=== PATIENT | male | born 1960 | race Caucasian/White ===

== ENCOUNTER 2017-10-19 08:54 | Day surgery (SDC) | payer OTHER ==
--- NOTE | 2017-10-18 19:59 | PDGENHP ---
History & Physical Chief Complaint: right shoulder pain History of Present Illness: 57 yo male, presenting today for right shoulder surgery by dr. fields for right shoulder sub acromial decompression, distal clavicle excision, labral debridement for a diagnosis of right shoulder impingement and AC arthrosis and labral tear. Pertinent Past, Social, Family History: FH: CHD, father,. PSH: hernia, vasectomy. Allergies: NKDA. Meds: denies Relevant Physical Exam: RUE: ttp over right ACJ, pain with end range foreward flexion and abduction, full elbow/wrist/digit, nvid w/ brisk cap refill Cardiorespiratory Assessment: ctab, no wheezes/rhales. rrr, no murmurs/rubs/ gallops
[2017-10-19] MEDS ORDERED: LR 1,000 ML IV SCH (09:14)
[2017-10-19] MEDS ORDERED: ceFAZolin 2 GM/SWFI 2 GM/20 ML SYR IVP ONE (09:14)
[2017-10-19] MEDS ORDERED: LR 1,000 ML IV ONE (09:15)
[2017-10-19] MEDS ORDERED: LIDOCAINE 1% 2 ML INJ ID PRN (09:15)
--- NOTE | 2017-10-19 09:39 | PDANEPAE ---
ANE History of Present Illness 57 year old male for right shoulder artroscopy. ANE Past Medical History - Cardiovascular History Hx Hypertension: No Hx Arrhythmias: No Hx Chest Pain: No Hx Coronary Artery / Peripheral Vascular Disease: No Hx CHF / Valvular Disease: No Hx Palpitations: No - Pulmonary History Hx COPD: No Hx Asthma/Reactive Airway Disease: No Hx Recent Upper Respiratory Infection: No Hx Oxygen in Use at Home: No Hx Sleep Apnea: No Sleep Apnea Screening Result - Last Documented: Negative - Neurologic History Hx Cerebrovascular Accident: No Hx Seizures: No Hx Dementia: No - Endocrine History Hx Diabetes: No - Renal History Hx Renal Disorders: No - Liver History Hx Hepatic Disorders: No - Neurological & Psychiatric Hx Hx Neurological and Psychiatric Disorders: No - Cancer History Hx Cancer: No - Congenital Disorder History Hx Congenital Disorders: No - GI History Hx Gastrointestinal Disorders: No - Other Health History Other Health History: wears glasses - Chronic Pain History Chronic Pain: Yes (right shoulder) - Surgical History Prior Surgeries: hernia repair 2015. VASECTOMY. VASECTOMY REVERSAL ANE Review of Systems Review of systems is: negative Review of Systems: - Exercise capacity Exercise capacity: >=4 METS METS (RN): 4 METS ANE Patient History - Allergies Allergies/Adverse Reactions: No Known Allergies Allergy (Verified 10/12/17 15:45) - Home Medications Home medications: home medication list seen and reviewed Home Medications: NK [No Known Home Meds] 10/12/17 [Last Taken Unknown] - NPO status NPO Status: no food or drink >8 hours NPO Since - Liquids (Date): 10/18/17 NPO Since - Liquids (Time): 23:25 NPO Since - Solids (Date): 10/18/17 NPO Since - Solids (Time): 22:00 - Anes Hx Anes Hx: no prior problems - Smoking Hx Smoking Status: Never smoked - Alcohol Use Alcohol Use: Rarely - Family Anes Hx Family Anes Hx: neg - N/A Family Hx Anesthesia Complications: NONE ANE Labs/Vital Signs - Vital Signs Vital Signs: reviewed preoperatively; see RN documention for details Blood Pressure: 143/85 Heart Rate: 66 Respiratory Rate: 16 O2 Sat (%): 96 Height: 177.8 cm Weight: 74.843 kg ANE Physical Exam - Airway Neck exam: FROM Mallampati Score: Class 2 Mouth exam: normal dental/mouth exam - Pulmonary Pulmonary: no respiratory distress - Cardiovascular Cardiovascular: regular rate and rhythym - ASA Status ASA Status: I ANE Anesthesia Plan Anesthesia Plan: GA w LMA Total IV Anesthesia: No
[2017-10-19] MEDS ORDERED: MIDAZOLAM 2 MG/2 ML VIAL IVP ONE (10:23)
[2017-10-19] MEDS ORDERED: PROPOFOL 200 MG/20 ML VIAL ONE (10:31)
[2017-10-19] MEDS ORDERED: LIDOCAINE 2% 5 ML SDV ONE (10:32)
[2017-10-19] MEDS ORDERED: fentaNYL 100 MCG/2 ML INJ ONE ×3 (10:32→12:53)
[2017-10-19] MEDS ORDERED: LIDO/EPI 1% **for epidural** 10 ML SDV ONE (10:35)
[2017-10-19] MEDS ORDERED: BUPIVACAINE/EPI 0.5% 30 ML SDV ONE (10:35)
[2017-10-19] MEDS ORDERED: PHENYLEPHRINE HCL 100 MCG/ML SYR ONE (11:12)
[2017-10-19] MEDS ORDERED: ONDANSETRON 4 MG/2 ML VIAL ONE (11:13)
[2017-10-19] MEDS ORDERED: DEXAMETHASONE 4 MG/ML VIAL ONE (11:13)
[2017-10-19] MEDS ORDERED: LR 500 ML IV PRN (11:46)
[2017-10-19] MEDS ORDERED: PHENYLEPHRINE HCL 100 MCG/ML SYR IVP PRN (11:46)
[2017-10-19] MEDS ORDERED: ONDANSETRON 4 MG/2 ML VIAL IVP PRN ×2 (11:46→12:36)
[2017-10-19] MEDS ORDERED: OXYCODONE/APAP 5/325 TAB PO PRN (11:46)
[2017-10-19] MEDS ORDERED: NALOXONE HCL 0.4 MG/ML INJ IVP PRN (11:46)
--- NOTE | 2017-10-19 12:35 | POSTOPPROG ---
Post Op Note Date of Operation: 10/19/17 Surgeon: Lupe Watkins Shafting Cleaner: Zach. Nestor BOSTON Anesthesiologist: Dr. ward hernandez Anesthesia: LMA Pre-op Diagnosis: right shoulder pain, right shoulder impingement Post-op Diagnosis: right shoulder pain, right shoulder impingement Indication: right shoulder pain, right shoulder impingement Procedure: Rt shoulder scope, SAD, DCE, labral debridement, biceps tenotomy Inf/Abcess present in the surg proc area at time of surgery?: No Depth: Deep Incisional (Fascial) EBL: Minimal Complications: none
[2017-10-19] MEDS ORDERED: HYDROCODONE/APAP 5/325 TAB PO PRN (12:36)
[2017-10-19] MEDS ORDERED: ACETAMINOPHEN 325 MG TAB PO PRN (12:36)
[2017-10-19] MEDS ORDERED: PROMETHAZINE HCL 25 MG/ML INJ IVP PRN (12:36)
[2017-10-19] MEDS: fentaNYL 100 MCG/2 ML INJ IVP PRN ×2 (12:56→13:14)
[2017-10-19] MEDS ORDERED: HYDROmorphONE/DILAUDID 1 MG/ML INJ ONE (12:59)
[2017-10-19] MEDS ORDERED: HYDROCODONE/APAP 5/325 TAB ONE (13:00)
[2017-10-19] MEDS: HYDROmorphONE/DILAUDID 1 MG/ML INJ IVP PRN ×2 (13:01→13:14)
--- NOTE | 2017-10-19 13:11 | GOP ---
[f rep st] OPERATIVE REPORT DATE OF OPERATION: 10/19/2017 SURGEON: Lupe Watkins MD [facility] DIRECTOR: Garrison Baez PA-C. ANESTHESIA: General. PREOPERATIVE DIAGNOSIS: Right shoulder impingement syndrome with associated partial thickness rotato r cuff tear, labral tear, and acromioclavicular arthritis. Rule out biceps tendonitis. POSTOPERATIVE DIAGNOSIS: 1. Degenerative tear involving the superior and posterior labrum. 2. Significant fraying of the long head of the biceps involving the intra-articular portion. 3. Impingement syndrome with partial thickness tearing of the supraspinatus at its insertion on the greater tuberosity. 4. Acromioclavicular arthritis. PROCEDURE PERFORMED: 1. Arthroscopic debridement of frayed portion of posterior and superior labrum. 2. Biceps tenotomy. 3. Arthroscopic subacromial decompression. 4. Distal clavicular resection. FINDINGS: ESTIMATED BLOOD LOSS: 5 cc. INDICATIONS: This patient is a 57-year-old male who has had shoulder pain which has been unresponsiv e to conservative management. He has been evaluated with an MRI scan which shows evidence of the abo ve-noted preoperative diagnoses. He is admitted for operative treatment. DESCRIPTION OF PROCEDURE: After the induction of a general anesthesia, the patient was placed on the operating room table in a modified beach-chair position. His right shoulder axilla and arm were pre pped and draped in the usual fashion. Standard arthroscopic portals were utilized. The scope was in troduced in the posterior portal, and the glenohumeral joint inspected. The intra-articular exam ana maria wed evidence of some fraying involving the long head of the biceps. It involved the intra-articular portion. The damage was beyond the scope of what was likely to heal. A biceps tenotomy was performe d. There was fraying of the inner margin of the superior labrum and unstable flap components to a de generative tear of the superior posterior labrum. These were debrided with a rotary debrider. The g lenoid and humeral articular surfaces were in excellent condition. There was a partial thickness tea r of the supraspinatus at its insertion on the greater tuberosity. It involved a segment which was l ess than 1 cm in length and it appeared to involve less than 50% of the depth of the tendon in that s pot. It was felt to be a lesion that will likely heal following decompression. It was minimally maria d rided. At this point the scope was passed in the subacromial space. There was chafing of the CA ligament at its insertion on the anterior acromion consistent with active impingement. The periosteal undersurf aaliyah of the acromion was resected and the CA ligament released from its attachment on the anterior acr omion. The markedly prominent anterior lip to the acromion was removed with a rotary bur. This sect ion was tapered posteriorly until it blended nicely with the subacromial surface. This nicely decomp ressed the subacromial space. The AC joint was inspected. There was diffuse grade 4 change on the distal clavicle with a large bon e spur on the inferior aspect of the distal clavicle encroaching on the acromial outlet. A distal cl avicular excision was performed. At this point the hypertrophic bursal tissue in the subacromial space was resected before the arthros copic equipment was removed. The portals were infiltrated with 0.25% Marcaine solution before being closed with 5-0 Vicryl. Steri-Strips and a sterile compressive dressing were applied, and the patien t then was awakened from his anesthetic. There were no intraoperative complications. COMPLICATIONS: None. /[id number]/MODL
[2017-10-19 14:00] VITALS: PULSE 86; RESP 16
[2017-10-19 14:03] VITALS: BP 144/94; O2SAT 91
[2017-10-19 14:04] VITALS: TEMP 97.2
--- NOTE | 2017-10-19 20:11 | POSTANESTH ---
Post Anesthetic Evaluation Cardiovascular Status: Normal, Stable, Similar to Pre-Op Cond Respiratory Status: Normal, Stable, Similar to Pre-op Cond. Level of Consciousness/Mental Status: Can Participate in Eval, Alert and Oriented Pain Control: Adequate, Prn Tx Ordered Nausea/Vomiting Control: Adequate, Prn Tx Ordered Complications Possibly Related to Anesthesia: None Noted
[2017-10-19] MEDS ORDERED: DOCUSATE SODIUM 100 MG CAP PO SCH (21:00)
== END 2017-10-19 14:30 | disposition home or self-care (01) ==
LOC: FSGY 08:54
PROVIDERS: ATTEND Orthopaedic Surgery
PROC: 0MB14ZZ Excision of Right Shoulder Bursa and Ligament, Percutaneous Endoscopic Approach (ICD-10-PCS; principal; 2017-10-19 10:00)
PROC: 0PB Upper Bones, Excision (ICD-10-PCS; principal; 2017-10-19 10:00)
PROC: 0PB94ZZ Excision of Right Clavicle, Percutaneous Endoscopic Approach (ICD-10-PCS; principal; 2017-10-19 10:00)
DX: M75.111 Incomplete rotator cuff tear or rupture of right shoulder, not specified as traumatic (principal); M75.41 Impingement syndrome of right shoulder; M19.011 Primary osteoarthritis, right shoulder; M75.21 Bicipital tendinitis, right shoulder
CPT/HCPCS: J0690; J1100; J1170; J2250; J2370; J2405; J2704; J3010